=== PATIENT | male | born 1970 | race Caucasian/White ===

== ENCOUNTER 2018-06-19 20:47 | Emergency (ER) | payer OTHER ==
[~2018-06-19] VITALS: Ht 180.3 cm; Wt 97.1 kg
[2018-06-19] MEDS ORDERED: AUGMENTIN 875-1 EACH PO (21:03)
[2018-06-19] MEDS ORDERED: PREDNISONE 20 M20 MG PO (21:04)
[2018-06-19] MEDS ORDERED: COMBIVENT INH (21:05)
[2018-06-19] MEDS ORDERED: DULERA 100 MCG/13 GM INH (21:12)
[2018-06-19 21:34] LABS: HEMATOCRIT 43.3 % (42.0-52.0); HEMOGLOBIN 14.4 gm/dL (14.0-18.0); MCH 26.6 pg (26.0-34.0); MCHC 33.2 g/dL (28.0-37.0); MPV 7.9 fl. (7.2-11.1); NUCLEATED RBCS 0 /100WBC; PLATELET COUNT* 256 thou/uL (150-400); RBC 5.42 mil/uL (4.50-6.00); RDW-CV 14.3 % (10.5-14.5); WBC 11.2 thou/uL (4.0-11.0)
[2018-06-19 21:41] LABS: PROTIME 10.1 Seconds (9.20-11.50)
[2018-06-19 21:50] LABS: ALBUMIN 3.5 g/dL (3.4-5.0); CALCIUM 8.5 mg/dL (8.5-10.1); CREATININE 1.1 mg/dL (0.6-1.3); POTASSIUM 3.9 mmol/L (3.5-5.1); TOTAL BILIRUBIN 0.3 mg/dL (<0.1-1.0); TOTAL PROTEIN 7.9 g/dL (6.4-8.2)
[2018-06-19 21:56] LABS: ABSOLUTE MONOCYTES 0.4 thou/uL (0.0-1.2); ABSOLUTE NEUTROPHILS 9.7 thou/uL (1.6-8.1); PLATELET ESTIMATE ADEQUATE
[2018-06-19 22:27] LABS: AMP/METHAMP Negative (Negative); BARBITURATES Negative (Negative); BENZODIAZEPINES Negative (Negative); COCAINE Negative (Negative); METHADONE Negative (Negative); OPIATES Negative (Negative); PCP Negative (Negative); THC Negative (Negative)
[2018-06-19 23:09] LABS: INFLUENZA A ANTIGEN None Detected (None Detect)
[2018-06-20] MEDS ORDERED: NORCO 5-325 TA1 EACH PO (00:12)
[2018-06-20] MEDS ORDERED: OSELB75 PO (00:12)
[2018-06-20 00:24] VITALS: BP 120/80
--- NOTE | 2018-06-20 11:54 | EKG ---
[place] [address] ELECTROCARDIOGRAM REPORT Name: JE ROSE Room: [facility]#: [id number] Admission: 06/19/18 Attend Phys: Discharge: 06/20/18 Date of : 68 Report #: [id number] THIS REPORT FOR: //name// [facility] ED Test Date: 2018-06-19 Test Time: 20:52:47 Pat Name: JE ZAVALACLARYZOHREH Department: Room: Gender: Barker Peeler: : 1970 Requested By: Angie Gutierrez Order Number: [id number] MD: Luciano Brewer Measurements Intervals [place] Rate: 121 P: 47 TN: 157 QRS: -10 QRSD: 98 T: 29 QT: 328 QTc: 466 Interpretive Statements Sinus tachycardia Baseline wander in lead(s) V2 No previous ECG available for comparison Electronically Signed On 06-20-2018 11:54:42 CDT by Luciano Brewer [email or web address] <ELECTRONICALLY SIGNED> By: Luciano Brewer MD, [facility] 06/20/18 1154 51 51 Luciano Brewer MD, FACC /EPI
== END 2018-06-20 00:27 | disposition home or self-care (01) ==
LOC: M.ERS 20:47
PROVIDERS: Emergency Medicine
DX: J10.1 Influenza due to other identified influenza virus with other respiratory manifestations (principal); Z88.6 Allergy status to analgesic agent